=== PATIENT | male | born 1945 | race Caucasian/White ===

== ENCOUNTER → 2022-11-17 10:24 | Outpatient (CLI) | payer OTHER, SELFPAY ==
--- NOTE | 2022-11-17 10:27 | DI.MRI.S_ITS ---
PROCEDURE: MR LUMBAR SPINE WO CON INDICATIONS: Pain in left leg TECHNIQUE: Noncontrast sagittal T1 spin echo and T2 fast echo, sagittal STIR, and T2 fast spin echo through the lumbar spine. In cases with scoliosis, additional coronal T2 fast spin echo may be performed. COMPARISON: None. FINDINGS: Image quality: This examination is limited by involuntary motion artifact. Alignment and Curvature: Grade 1 anterolisthesis is seen at the L4-L5 level. No associated pars defects can be seen. There is minimal retrolisthesis at L2-L3 and at L5-S1. Bone Marrow: Marrow is of normal overall signal. No acute vertebral body compression fractures. Spinal Cord: Conus medullaris terminates at the L1-L2 level. Visualized cord demonstrates normal signal and size. Paraspinous Soft Tissues: No paravertebral masses. The aorta is ectatic and tortuous. The proximal common iliac arteries are near the upper limits of normal. T12-L1: Bridging anterior osteophytes are seen. No significant neural foraminal or central canal narrowing can be seen. L1-L2: The disc height and disk signal are relatively well-preserved. Mild disc bulge is seen, with a slight central disc protrusion. There is mild left-sided and moderate right-sided neural foraminal narrowing. Minimal central canal narrowing is seen. L2-L3: The disc height and disk signal are well-preserved. Mild to moderate disc bulge is seen. Mild facet joint hypertrophy is seen. There is at least moderate bilateral neural foraminal narrowing seen. Mild to moderate central canal narrowing is seen. L3-L4: Mild loss of disc height is seen. Loss of disc signal is seen. Moderate disc bulge is seen, which is slightly eccentric to the right. Mild to moderate facet hypertrophy is seen. There is moderate to severe bilateral neural foraminal narrowing seen, right worse than left. There is a degree of compression seen upon the exiting nerve roots. Moderate central canal narrowing is seen. L4-L5: Mild to moderate loss of disc height is seen. Loss of disc signal is seen. Moderate disc bulge is seen, with a central disc protrusion. Prominent facet hypertrophy is seen. There is a remote Schmorl's node along the inferior endplate of L4, without associated edema. There is moderate to severe bilateral neural foraminal narrowing seen, with an associated a degree of compression seen upon the exiting nerve roots. Severe central canal narrowing is seen at this level, as on series 7, image 1. L5-S1: [id number] loss of disc height and disc signal can be seen. Moderate disc bulge is seen, which is eccentric to the right. There is a superimposed central disc protrusion. There is a focal annular fissure seen posteriorly. Moderate facet joint hypertrophy is seen. There is moderate to severe bilateral neural foraminal narrowing seen, with an associated a degree of compression seen upon the exiting nerve roots. Moderate central canal narrowing is seen. IMPRESSION: Multiple levels of lumbar spine degenerative change are seen, which are worst at the L4-L5 level, where there is severe central canal narrowing. Several sites of significant neural foraminal narrowing can be seen, with associated exiting nerve root compression. Dictated by: Edinson Cheney M.D. on 11/17/2022 at 12:00 Approved by: Edinson Cheney M.D. on 11/17/2022 at 12:14
== END ==
PROVIDERS: PCP Internal Medicine; Referring Provider Physician Assistant; Visit Provider Physician Assistant
DX: M47.816 Spondylosis without myelopathy or radiculopathy, lumbar region (principal); M47.817 Spondylosis without myelopathy or radiculopathy, lumbosacral region; M48.061 Spinal stenosis, lumbar region without neurogenic claudication; M48.07 Spinal stenosis, lumbosacral region; M79.605 Pain in left leg
CPT/HCPCS: 72148

== ENCOUNTER → 2023-09-20 08:50 | Outpatient (CLI) | payer MEDICARE, OTHER, SELFPAY ==
--- NOTE | 2023-09-20 08:53 | DI.RAD.S_ITS ---
PROCEDURE: XR KNEE LT 3V INDICATIONS: left knee /calf swelling TECHNIQUE: 3 views of the knee were acquired. COMPARISON: None. FINDINGS: Bones: No fractures or dislocations. No suspicious bony lesions. Soft tissues: No joint effusion. No suspicious soft tissue calcifications. IMPRESSION: No visualized acute fracture or dislocation. However, if clinical concern and/or pain persist, short interval imaging followup in 7-10 days is recommended, as occult injury cannot be definitively excluded. Dictated by: Nurys Velez M.D. on 09/20/2023 at 9:48 Approved by: Nurys Velez M.D. on 09/20/2023 at 9:51
--- NOTE | 2023-09-20 08:53 | DI.US.S_ITS ---
PROCEDURE: US PERIPH VENOUS LOW EXTREM LT INDICATIONS: CALF SWELLING - RULE OUT DVT VS RUPTURED MARINO'S CYST TECHNIQUE: Real-time imaging, as well as color and pulse Doppler interrogation, were performed of the lower extremity deep veins from the inguinal ligament to the popliteal fossa, with documentation of the visualized calf veins. COMPARISON: None. FINDINGS: The common femoral, femoral, popliteal, and the visualized calf veins are normally compressible, and free of intraluminal thrombus. Color and pulse Doppler demonstrate normal phasic intraluminal flow. There is normal augmentation response to distal compression maneuver. There is a focus of heterogeneous echogenicity in the superior medial calf measuring 6.3 x 2.0 x 0.8 cm. No increased vascularity. IMPRESSION: No findings of lower extremity deep venous thrombosis. Focus of heterogeneous echogenic collection as described above. This could represent a ruptured Marino cyst. Other etiology such as hematoma or abscess should be considered. Dictated by: Nurys Velez M.D. on 09/20/2023 at 9:51 Approved by: Nurys Velez M.D. on 09/20/2023 at 10:18
== END ==
PROVIDERS: PCP Physician Assistant; Referring Provider Student in an Organized Health Care Education/Training Program; Visit Provider Student in an Organized Health Care Education/Training Program
DX: M25.462 Effusion, left knee (principal); M79.89 Other specified soft tissue disorders
CPT/HCPCS: 73562; 93971